=== PATIENT | male | born 1985 | race Caucasian/White ===

== ENCOUNTER 2016-06-13 10:35 | Emergency (ER) | payer SELFPAY ==
[~2016-06-13 10:35] MED LIST: LORTAB 7.5-5001 TAB PO; MEDROL4 MG/DOSE- PO; NO MEDICATIONS
== END 2016-06-13 10:54 | disposition home or self-care (01) ==
LOC: SED 10:35
DX: M54.42 Lumbago with sciatica, left side (principal); F17.210 Nicotine dependence, cigarettes, uncomplicated; Z88.8 Allergy status to other drugs, medicaments and biological substances
CPT/HCPCS: 99282; 99283